=== PATIENT | female | born 1980 | race African-American/Black ===

== ENCOUNTER 2018-10-01 00:28 | Observation (INO) | payer SELFPAY ==
[~2018-10-01] VITALS: Ht 157.5 cm; Wt 93.4 kg
[2018-10-01 02:11] LABS: CLARITY URINE CLEAR (CLEAR); COLOR URINE YELLOW (YELLOW); KETONES URINE NEGATIVE (NEGATIVE); LEUKOCYTE ESTERASE URINE NEGATIVE (NEGATIVE); NITRITE URINE NEGATIVE (NEGATIVE); OCCULT BLOOD URINE NEGATIVE (NEGATIVE); PROTEIN URINE NEGATIVE (NEGATIVE); SPECIFIC GRAVITY URINE 1.009 (1.005-1.030); UROBILINOGEN URINE 0.2 E.U./dL (0.2-1.0)
[2018-10-01] MEDS ORDERED: PREN-182 MT (03:18)
== END 2018-10-01 03:00 | disposition home or self-care (01) ==
LOC: 8 EST LDRP 00:28
PROVIDERS: ADMIT Obstetrics & Gynecology; ATTEND Obstetrics & Gynecology
DX: O26.893 Other specified pregnancy related conditions, third trimester (principal); R10.30 Lower abdominal pain, unspecified; Z3A.29 29 weeks gestation of pregnancy
CPT/HCPCS: 76805; 76818; 81003; G0378; 99281